=== PATIENT | female | born 1990 | race African-American/Black ===

== ENCOUNTER 2019-02-07 04:17 | Inpatient (IN) ==
[2019-02-07 05:05] LABS: Amorphous Crystals,Urine Occasional /HPF (Few); Apearance,Urine Slightly Hazy (Clear); Bilirubin,Urine Negative (Negative); Blood, Urine Small mg/dL (Negative); Glucose,Urine (UA) >=500 mg/dL (Negative); Ketones,Urine Negative (Negative); Mucus,Urine Occasional /LPF (Occasional); Nitrite,Urine Negative (Negative); Protein,Urine Negative; RBC,Urine 1 /HPF (0-4); Squamous Epithelial Cell,Urine Occasional /HPF (0-10); Urine Color Yellow (Yellow); Urine Specific Gravity 1.016 (1.001-1.035); Urine Urobilinogen < 2.0 EU/DL (0.2-1.0); WBC,Urine 2 /HPF (0-6)
[2019-02-07 05:15] LABS: Basophils # 0.2 10*3/uL (0.0-0.2); Basophils % 0.7 % (0.0-0.8); Eosinophils # 0.4 10*3/uL (0.0-0.87); Eosinophils % 1.9 % (0.00-10.9); Hematocrit 31.4 VOL% (35.7-47.0); Hemoglobin 10.2 GM/DL (12.0-16.0); Immature Granulocytes % 6.5 %; Lymphocytes # 2.5 10*3/uL (1.4-4.0); Mean Corpuscular HGB Conc 32.5 GM/DL (32-36); Mean Corpuscular Volume 93.2 FL (87-102); Mean Platelet Volume 9.8 FL (9.6-12.0); Monocytes % 7.5 % (1.7-12.7); Neutrophils % 72.4 % (38.7-73.9); Platelet Count 281 T/CUMM (130-400); Red Blood Count 3.37 MC/CUMM (3.8-5.5); Red Cell Distribution Width 13.1 % (9.3-17.3); White Blood Count 22.9 T/CUMM (4-12)
[2019-02-07] MEDS ORDERED: MAGNESIUM SULF RIDER 100 ML IV ONE (05:16)
[2019-02-07] MEDS: LACTATED RINGERS 1,000 ML IV SCH ×2 (05:25→18:34)
[2019-02-07] MEDS ORDERED: BETAMETH SODIUM PHOS/ACETATE 30 MG/5 ML VIAL IM SCH (05:30)
[2019-02-07 05:32] LABS: Bilirubin,Total 0.5 MG/DL (0.2-1.0); Calcium 8.4 MG/DL (8.5-10.1); Total Protein 7.2 G/DL (6.4-8.3)
[2019-02-07] MEDS: CLINDAMYCIN INJ 900 MG in PREMIX 1 EACH IV SCH ×3 (05:32→21:30)
[2019-02-07 05:48] LABS: Eosinophils 4 % (0-10); Lymphocytes 19 % (20-55); Metamyelocytes 2 %; Segmented Neutrophils 67 % (50-85); Total Cells Counted 100
[2019-02-07 05:49] LABS: Reactive Lymphocytes 1+
[2019-02-07 05:50] LABS: Hypochromasia 1+; Platelet Estimate Normal; Polychromasia Few
[2019-02-07] MEDS: MAGNESIUM SULF DRIP 40 GM/1,000 ML ML IV SCH (06:15)
[2019-02-07] MEDS: FLUTICASONE 50 MCG NASAL SPRAY 16 GM BOTTLE BOTH NARES SCH ×2 (12:11→21:20)
[2019-02-07] MEDS: ONDANSETRON 4 MG/2 ML VIAL IV PRN ×2 (16:53→22:25)
[2019-02-07] MEDS ORDERED: BUTORPHANOL 1 MG/ML VIAL IV PRN (22:04)
[2019-02-08] MEDS: CLINDAMYCIN INJ 900 MG in PREMIX 1 EACH IV SCH ×3 (05:58→21:37)
[2019-02-08] MEDS: LACTATED RINGERS 1,000 ML IV SCH ×2 (06:45→06:51)
[2019-02-08] MEDS: MAGNESIUM SULF DRIP 40 GM/1,000 ML ML IV SCH (06:53)
[2019-02-08] MEDS ORDERED: AZITHROMYCIN INJ 1,000 MG in SODIUM CHLORIDE 0.9% 500 ML IV ONE (10:00)
[2019-02-08] MEDS: ONDANSETRON 4 MG/2 ML VIAL IV PRN (10:28)
[2019-02-09] MEDS: CLINDAMYCIN INJ 900 MG in PREMIX 1 EACH IV SCH ×3 (05:12→21:20)
[2019-02-09] MEDS: FLUTICASONE 50 MCG NASAL SPRAY 16 GM BOTTLE BOTH NARES SCH (21:48)
[2019-02-10] MEDS: CLINDAMYCIN INJ 900 MG in PREMIX 1 EACH IV SCH ×3 (05:22→21:35)
[2019-02-10] MEDS: ONDANSETRON 4 MG/2 ML VIAL IV PRN ×2 (09:19→18:35)
[2019-02-10] MEDS: FLUTICASONE 50 MCG NASAL SPRAY 16 GM BOTTLE BOTH NARES SCH ×2 (09:20→21:53)
[2019-02-11] MEDS: ONDANSETRON 4 MG/2 ML VIAL IV PRN (01:39)
[2019-02-11] MEDS ORDERED: ACETAMINOPHEN 325 MG TABLET PO PRN (03:55)
[2019-02-11] MEDS: CLINDAMYCIN INJ 900 MG in PREMIX 1 EACH IV SCH ×3 (06:20→21:40)
[2019-02-11] MEDS: FLUTICASONE 50 MCG NASAL SPRAY 16 GM BOTTLE BOTH NARES SCH (21:04)
[2019-02-12 05:17] LABS: Basophils # 0.1 10*3/uL (0.0-0.2); Basophils % 0.5 % (0.0-0.8); Eosinophils # 0.3 10*3/uL (0.0-0.87); Eosinophils % 1.6 % (0.00-10.9); Hematocrit 31.7 VOL% (35.7-47.0); Hemoglobin 10.2 GM/DL (12.0-16.0); Immature Granulocytes % 4.9 %; Immature Granulocytes Absolute 0.85 #; Lymphocytes # 2.1 10*3/uL (1.4-4.0); Lymphocytes % 12.4 % (21.3-54.2); Mean Corpuscular HGB Conc 32.2 GM/DL (32-36); Mean Corpuscular Volume 93.2 FL (87-102); Mean Platelet Volume 9.8 FL (9.6-12.0); Neutrophils % 72.6 % (38.7-73.9); Platelet Count 249 T/CUMM (130-400); Red Cell Distribution Width 13.2 % (9.3-17.3); White Blood Count 17.3 T/CUMM (4-12)
[2019-02-12] MEDS: CLINDAMYCIN INJ 900 MG in PREMIX 1 EACH IV SCH ×3 (05:30→23:58)
[2019-02-12 05:39] LABS: Band Neutrophils 2 % (0-10); Eosinophils 1 % (0-10); Hypochromasia 1+; Lymphocytes 18 % (20-55); Ovalocytes Slight; Platelet Estimate Adequate; Segmented Neutrophils 70 % (50-85); Total Cells Counted 100
[2019-02-12] MEDS ORDERED: OXYTOCIN/LR 20 UNIT/1,000 ML BAG IV SCH (12:30)
[2019-02-12] MEDS ORDERED: MEPERIDINE 50 MG/1 ML VIAL IV PRN (12:58)
[2019-02-12] MEDS ORDERED: LACTATED RINGERS 1,000 ML IV SCH (13:00)
[2019-02-12] MEDS ORDERED: CITRIC ACID/SODIUM CITRATE 30 ML UDCUP PO ONE (16:23)
[2019-02-12] MEDS ORDERED: PROMETHAZINE 25 MG/1 ML VIAL IM ONE (16:23)
[2019-02-12] MEDS ORDERED: NALOXONE 0.4 MG/ML VIAL IV PRN (16:23)
[2019-02-12] MEDS ORDERED: diphenhydrAMINE 50 MG/1 ML VIAL IV PRN ×2 (16:23)
[2019-02-12] MEDS ORDERED: LACTATED RINGERS 1,000 ML IV ONE (16:23)
[2019-02-12] MEDS ORDERED: FAMOTIDINE 20 MG/2 ML VIAL IV ONE (16:23)
[2019-02-12] MEDS ORDERED: ePHEDrine 50 MG/ML AMP IV PRN (16:23)
[2019-02-12] MEDS ORDERED: hydrOXYzine HCL 25 MG/1 ML VIAL IM PRN (16:23)
[2019-02-12] MEDS ORDERED: ONDANSETRON 4 MG/2 ML VIAL IV ONE (16:23)
[2019-02-12] MEDS ORDERED: fentaNYL 2 MCG/ROPIV 0.2% EPID 100 ML EPIDURAL SCH (16:30)
[2019-02-12] MEDS: FLUTICASONE 50 MCG NASAL SPRAY 16 GM BOTTLE BOTH NARES SCH (20:33)
[2019-02-12] MEDS ORDERED: miSOPROStoL 200 MCG TABLET ONE (21:14)
[2019-02-12] MEDS ORDERED: TRANEXAMIC ACID 1,000 MG/10 ML VIAL ONE (21:15)
[2019-02-12] MEDS ORDERED: METHYLERGONOVINE 0.2 MG/1 ML AMP ONE (21:15)
[2019-02-12] MEDS ORDERED: CARBOPROST TROMETHAMINE 250 MCG/ML AMP IM ONE (21:15)
[2019-02-13] MEDS ORDERED: oxyCODONE/ACETAMINOPHEN 5-325 MG TABLET PO PRN
[2019-02-13] MEDS: IBUPROFEN 800 MG TABLET PO PRN ×3 (00:11→23:54)
[2019-02-13] MEDS: oxyCODONE/ACETAMINOPHEN 5-325 MG TABLET PO PRN ×3 (01:53→23:54)
[2019-02-13 05:32] LABS: Basophils # 0.1 10*3/uL (0.0-0.2); Basophils % 0.3 % (0.0-0.8); Eosinophils # 0.1 10*3/uL (0.0-0.87); Eosinophils % 0.6 % (0.00-10.9); Hematocrit 26.8 VOL% (35.7-47.0); Hemoglobin 8.6 GM/DL (12.0-16.0); Immature Granulocytes % 2.1 %; Immature Granulocytes Absolute 0.42 #; Lymphocytes # 1.6 10*3/uL (1.4-4.0); Mean Corpuscular HGB Conc 32.1 GM/DL (32-36); Mean Corpuscular Volume 93.1 FL (87-102); Monocytes % 6.7 % (1.7-12.7); Neutrophils % 82.3 % (38.7-73.9); Platelet Count 219 T/CUMM (130-400); Red Blood Count 2.88 MC/CUMM (3.8-5.5); Red Cell Distribution Width 13.2 % (9.3-17.3); White Blood Count 20.3 T/CUMM (4-12)
[2019-02-13 06:01] LABS: Hypochromasia 1+; Lymphocytes 9 % (20-55); Platelet Estimate Adequate; Segmented Neutrophils 85 % (50-85); Total Cells Counted 100
[2019-02-13] MEDS ORDERED: MULTIVITAMIN (PRENATAL) TABLET PO SCH (09:00)
[2019-02-13] MEDS: DOCUSATE SODIUM 100 MG CAPSULE PO SCH ×2 (09:22→21:19)
[2019-02-14] MEDS: IBUPROFEN 800 MG TABLET PO PRN ×3 (05:13→20:00)
[2019-02-14 06:02] LABS: Basophils # 0.1 10*3/uL (0.0-0.2); Basophils % 0.5 % (0.0-0.8); Eosinophils # 0.3 10*3/uL (0.0-0.87); Eosinophils % 1.9 % (0.00-10.9); Hematocrit 27.4 VOL% (35.7-47.0); Hemoglobin 8.7 GM/DL (12.0-16.0); Immature Granulocytes % 2.2 %; Immature Granulocytes Absolute 0.39 #; Lymphocytes # 2.5 10*3/uL (1.4-4.0); Lymphocytes % 14.3 % (21.3-54.2); Mean Corpuscular HGB Conc 31.8 GM/DL (32-36); Mean Corpuscular Volume 95.1 FL (87-102); Monocytes % 9.6 % (1.7-12.7); Neutrophils % 71.5 % (38.7-73.9); Platelet Count 238 T/CUMM (130-400); Red Blood Count 2.88 MC/CUMM (3.8-5.5); Red Cell Distribution Width 13.4 % (9.3-17.3); White Blood Count 17.5 T/CUMM (4-12)
[2019-02-14 06:57] LABS: Band Neutrophils 1 % (0-10); Eosinophils 2 % (0-10); Lymphocytes 17 % (20-55); Platelet Estimate Adequate; Segmented Neutrophils 74 % (50-85); Total Cells Counted 100
[2019-02-14 06:58] LABS: Hypochromasia Slight
[2019-02-14] MEDS: DOCUSATE SODIUM 100 MG CAPSULE PO SCH ×2 (08:49→20:03)
[2019-02-14] MEDS: FLUTICASONE 50 MCG NASAL SPRAY 16 GM BOTTLE BOTH NARES SCH (08:50)
[2019-02-14] MEDS: oxyCODONE/ACETAMINOPHEN 5-325 MG TABLET PO PRN (20:03)
[2019-02-14] MEDS ORDERED: SIMETHICONE CHEW 80 MG TABLET PO PRN (22:20)
[2019-02-15] MEDS ORDERED: ONDANSETRON 4 MG TABLET PO PRN (00:28)
[2019-02-15 07:19] VITALS: BP 109/67
[2019-02-15] MEDS: DOCUSATE SODIUM 100 MG CAPSULE PO SCH (09:19)
[2019-02-15] MEDS: IBUPROFEN 800 MG TABLET PO PRN (09:20)
== END 2019-02-15 12:00 | disposition home or self-care (01) | DRG 560 ==
LOC: N.LDOUT 04:17 → N.LD 04:18 → N.OB 02-13 01:05
PROVIDERS: ADMIT Obstetrics & Gynecology; ATTEND Obstetrics & Gynecology